=== PATIENT | male | born 1980 | race Two or more races ===

== ENCOUNTER → 2022-02-16 13:58 | Outpatient (BNVA) | payer OTHER, SELFPAY | PROVIDERS: PCP Internal Medicine; Visit Provider Nurse Practitioner Family | DX: G50.0 Trigeminal neuralgia (principal) | CPT/HCPCS: 99212 ==

== ENCOUNTER → 2022-04-29 09:20 | Outpatient (BNVA) | payer OTHER, SELFPAY | PROVIDERS: PCP Internal Medicine; Visit Provider Nurse Practitioner Family | DX: G50.0 Trigeminal neuralgia (principal); R51.9 Headache, unspecified | CPT/HCPCS: 99212 ==

== ENCOUNTER → 2022-07-02 14:46 | Outpatient (BNVA) | payer OTHER, SELFPAY | PROVIDERS: PCP Internal Medicine; Visit Provider Nurse Practitioner Family | DX: G50.0 Trigeminal neuralgia (principal) | CPT/HCPCS: 99212 ==

== ENCOUNTER → 2022-09-04 14:43 | Outpatient (BNVA) | payer OTHER, SELFPAY | PROVIDERS: PCP Internal Medicine; Visit Provider Nurse Practitioner Family | DX: G50.0 Trigeminal neuralgia (principal) | CPT/HCPCS: 99212 ==

== ENCOUNTER → 2022-12-03 14:15 | Outpatient (BNVA) | payer OTHER, SELFPAY | PROVIDERS: PCP Internal Medicine; Visit Provider Nurse Practitioner Family | DX: G50.0 Trigeminal neuralgia (principal) | CPT/HCPCS: 99212 ==

== ENCOUNTER → 2023-01-11 08:15 | Outpatient (BNVA) | payer OTHER, SELFPAY | PROVIDERS: PCP Internal Medicine; Visit Provider Nurse Practitioner Family | DX: G50.0 Trigeminal neuralgia (principal); R51.9 Headache, unspecified; K08.9 Disorder of teeth and supporting structures, unspecified; G89.29 Other chronic pain | CPT/HCPCS: 99202 ==

== ENCOUNTER → 2023-02-02 09:27 | Outpatient (BNVA) | payer OTHER, SELFPAY | PROVIDERS: PCP Internal Medicine; Visit Provider Nurse Practitioner Family | DX: Z13.89 Encounter for screening for other disorder (principal) ==

== ENCOUNTER 2023-02-26 08:04 | Outpatient (REF) | payer OTHER, SELFPAY ==
--- NOTE | ~2023-02-26 | MR_ITS ---
EXAMINATION: MR BRAIN WITHOUT AND WITH CONTRAST CLINICAL INFORMATION: Trigeminal neuralgia. COMPARISON: Neck CT 07/14/2021. TECHNIQUE: Multiplanar multisequence MRI of the brain was performed without and with contrast. A total of 7.5 mL Gadavist was intravenously administered. FINDINGS: There is no acute infarction, hemorrhage, mass, or extra-axial fluid collection. A few nonspecific foci of T2/FLAIR hyperintensity are seen within the cerebral white matter. The ventricles are normal in size without hydrocephalus. No abnormal intracranial enhancement is seen. The trigeminal nerves demonstrate a normal cisternal course without compression or deviation. There is no abnormal enhancement along the cisternal trigeminal nerves. Meckel's caves and the cavernous sinuses appear normal. Foramen rotundum and foramen ovale appear normal. The pterygopalatine fossa appears normal. There is no parotid or submandibular gland abnormality. The mandibular alveolus demonstrates normal signal. The entrance to the inferior alveolar nerve canal appears normal. There is no edema or abnormal enhancement within the sap mobility architect space. The major arterial flow voids are preserved at the skull base. The orbits are unremarkable. No significant paranasal sinus inflammation is seen. MR/MR head/brain wo/w con IMPRESSION: No acute intracranial abnormality. No mass or abnormal enhancement. No trigeminal nerve compression or abnormal enhancement.
== END 2023-02-26 08:05 | disposition home or self-care (01) ==
LOC: HO.MRI 08:04
PROVIDERS: Visit Provider Nurse Practitioner Family
DX: R51.9 Headache, unspecified (principal); G50.0 Trigeminal neuralgia; G89.29 Other chronic pain; K08.9 Disorder of teeth and supporting structures, unspecified
CPT/HCPCS: 70553; A9585

== ENCOUNTER → 2023-03-04 15:26 | Outpatient (BNVA) | payer OTHER, SELFPAY | PROVIDERS: PCP Internal Medicine; Visit Provider Nurse Practitioner Family ==

== ENCOUNTER → 2023-04-30 10:36 | Outpatient (BNVA) | payer OTHER, SELFPAY | PROVIDERS: PCP Internal Medicine; Visit Provider Nurse Practitioner Family ==

== ENCOUNTER 2023-07-23 08:29 | Outpatient (AMB) | payer OTHER, SELFPAY ==
--- NOTE | 2023-07-23 08:30 | A.OFFVIS_ITS ---
Intake Vital Signs 07/23/23 08:33 Height 5 ft 10 in Weight 169 lb 8 oz BMI 24.3 BP 134/83 Blood Pressure Location Lt brachial Position Sitting Pulse 75 Pulse Source Pulse Oximeter Pulse Oximetry (%) 99 Oxygen Delivery Method Room Air Intake Visit Reasons: Increasing Pain Intake Note: Pain today 03/08. Child Neurologist Required: No Accompanied by: Self / Same As Patient Allergies No Known Allergies Allergy (Verified 07/23/23 08:33) HPI HPI Comments History of Present Illness Details Patient presents today for follow up regarding left sided facial pain related to trigeminal neuralgia. He reports occasional similar symptoms on his right side of the face. Patient is most concerned with reoccurence and frequency of bilateral temples pain with tenderness. Reports significant swelling after head massage and around side of his head, with swelling around his temples worse on the left than right. He also reports occasional facial and jaw pain with chewing. Patient notes increase in headaches which are tension related in nature due to increase stress. He checks his blood pressure at home after work hours and notes increased readings in 140's. Patient denies specific follow up for elevated BP with his PCP and mostly sees his PCP for well visits. I have encouraged patient to follow up with his PCP regarding BP monitoring and management. Given his samaritan tenderness, we will proceed with Vascular Referral to further evaluate this and rule out temporal arteritis. Denies any fever, cough, shortness of breaths, chest pain, visual disturbances, gait imbalance, bladder or bowel incontinence or saddle anesthesia. PRIOR: Patient presents today via telehealth encounter for medication review. Patient reports he believes he developed allergic reaction to topical compound cream. Patient states he developed swelling, redness, and rash over left side of his face and near left eye and few rash over his trunk. Patient reports he might have applied too much of topical cream and this causes allergic reaction. He states that he has used topical compound cream before in small amounts before without any rash or other side effects. Patient also states that he has not had significant pain related to trifeminal neuralgia for the past 2 months since consistently taking baclofen prn and amitriptyline at bedtime. Denies any other recent cough, cold, infection, fever, visual changes or disturbances or other significant changes in medical history since last office visit. PRIOR: Patient is a pleasant 42 years old male who presents today for an initial evaluation of left sided facial pain. Patient was referred to our office by our neurology colleagues for treatment of left trigeminal neuralgia. Patient reports his left sided facial pain started over 1.5 years ago after a dental procedure, which involved extraction of 3 teeth. Patient notes that he chronically has dental problems and recently started antibiotics for right upper dental abscess for one month. He failed conservative measures, including gabapentin, Trileptal, carbamazepine, amitriptyline, topiramate, baclofen. He presents with localized tenderness in the projection of V1, V2, V3 distribution on the left side of the forehead, left face, part of left ear and left upper and lower teeth. Patient reports pressure from the left upper teeth to the left t emporal region and head. Reports mild to moderate pain with chewing, talking or upright position. Pain relieved in a recumbent position. Patient describes his pain as intermittent aching, stabbing, lancinating and numbness with occasional spasming. Episodes lasting 2-3 minutes and reports relief in between. Denies any fever, malaise, weight loss, vision changes, hearing loss, postural dizziness, m michele loss, burning or tingling pain, ear pain, or ipsilateral facial muscle contractions. [facility] Surgical History Hx of hernia repair Family History Father Stroke Hypercholesterolemia Mother Throat cancer Social History Household Members: Spouse and Children Alcohol intake: never Patient Tobacco Use Status: Never used Tobacco Current occupational status: employed Review of Systems Const All systems reviewed & are unremarkable except as noted in HPI and below ENT Reports Normal hearing present Neuro Reports Normal hearing present and Reports Sensory deficit (Neuro) Physical Exam Vital Signs: Last Vital Signs Pulse 75 07/23/23 08:33 BP 134/83 07/23/23 08:33 Pulse Ox 99 07/23/23 08:33 Oxygen Delivery Method Room Air 07/23/23 08:33 BMI result Body Mass Index 24.3 General: Appears afebrile. Alert and oriented. Mood and affect appropriate. Follows and participates in conversation appropriately. Respiratory effort is unlabored. Able to transition from sit to stand unassisted. Ambulates with bilaterally normal heel strike and toe off. Const Orientation/consciousness: patient oriented x3 HEENT Head: Yes normal to inspection, Yes No palpable skull fracture present, Yes normocephalic, Yes atraumatic, No occipital foramen tenderness, No scalp tenderness and Yes Temporal artery tenderness present (bilateral, left >right) Eyes General: appearance normal, both eyes and all related structures Visual Burkett: normal visual burkett by confrontation Pupils: Equal, round and reactive pupils present Neck Neck: Yes full ROM, Yes no lymphadenopathy, Yes supple, No anterior neck sw elling and Yes no JVD Neuro Other: Tenderness in the projection of V1, V2, V3 distribution on the left side of the forehead, left face, part of left ear and left upper and lower teeth. Reports mild pain with chewing. General: patient oriented x3, gait normal, moves all extremities, Normal light touch and pain sensation, no focal motor deficits, CN's II-XI intact bilaterally and deep tendon reflexes 2+ bilaterally Cranial nerves: Yes Facial sensation intact/muscles of mastication intact (decreased sensation left forehead and left face), Yes Equal, round and reactive pupils present, Yes Bilaterally intact EOM present, Yes Nystagmus not present, Yes Normal facial strength present, Yes Normal hearing present, Yes Ability to bilaterally rotate head present and Yes Ability to bilaterally elevate shoulders present Cognition (Neuro): normal cognition Gait exam (Neuro): Normal gait present Motor exam (neuro): no tremor noted Sensory Exam: Sensory deficit (Neuro) Results Reviewed Results Reviewed: MR BRAIN WITHOUT AND WITH CONTRAST 02/26/23 CLINICAL INFORMATION: Trigeminal neuralgia. COMPARISON: Neck CT 07/14/2021. FINDINGS: There is no acute infarction, hemorrhage, mass, or extra-axial fluid collection. A few nonspecific foci of T2/FLAIR hyperintensity are seen within the cerebral white matter. The ventricles are normal in size without hydrocephalus. No abnormal intracranial enhancement is seen. The trigeminal nerves demonstrate a normal cisternal course without compression or deviation. There is no abnormal enhancement along the cisternal trigeminal nerves. Meckel's caves and the cavernous sinuses appear normal. Foramen rotundum and foramen ovale appear normal. The pterygopalatine fossa appears normal. There is no parotid or submandibular gland abnormality. The mandibular alveolus demonstrates normal signal. The entrance to the inferior alveolar nerve canal appears normal. There is no edema or abnormal enhancement within the supervisor cleaning and annealing space. The major arterial flow voids are preserved at the skull base. The orbits are unremarkable. No significant paranasal sinus inflammation is seen. IMPRESSION: No acute intracranial abnormality. No mass or abnormal enhancement. No trigeminal nerve compression or abnormal enhancement. Assessment & Plan Assessment & Plan (1) Nondenominational tenderness: Code(s): R51.9 - Headache, unspecified (2) Trigeminal neuralgia of left side of face: Code(s): G50.0 - Trigeminal neuralgia (3) Headache: Code(s): R51.9 - Headache, unspecified (4) Chronic dental pain: Code(s): K08.9 - Disorder of teeth and supporting structures, unspecified; G89.29 - Other chronic pain Plan 1. Continue amitriptyline and magnesium for trigeminal neuralgia. 2. Medrol Jefe script sent for pain in the projection of temples. I will also refer patient to our Vascular Surgeon for further evaluation to rule out temporal arteritis. All questions were answered and patient agreed with the plan. Follow up as after Vascularl evaluation and sooner if needed. Orders: Referrals Vascular Surgery Referral R51.9 - Headache, unspecified Medications: New methylprednisolone (Medrol (Jefe)) PO PER PKG DIR 21 ea 0RF pain G50.0 - Trigeminal neuralgia, R51.9 - Headache, unspecified Refilled magnesium glycinate 200 mg (2 x 100 mg) PO DAILY 60 tabs 3RF pain 30 days G50.0 - Trigeminal neuralgia, G89.29 - Other chronic pain, K08.9 - Disorder of teeth and supporting structures, unspecified, R51.9 - Headache, unspecified Discontinued prednisone Discontinued Reason: Patient Completed Course 40 mg (2 x 20 mg) PO DAILY 5 days 10 tabs 1RF G50.0 - Trigeminal neuralgia, T78.40XA - Allergy, unspecified, initial encounter Coding Level of Care Code Est Pt Level 4 (51224) Diagnoses Nondenominational tenderness R51.9 Trigeminal neuralgia of left side of face G50.0 Headache R51.9 Chronic dental pain K08.9; G89.29
[2023-07-23 08:33] VITALS: BP 134/83; PULSE 75; O2SAT 99; BMI 24.3
== END 2023-07-23 08:52 | disposition home or self-care (01) ==
PROVIDERS: PCP Internal Medicine; Visit Provider Nurse Practitioner Family
DX: R51.9 Headache, unspecified (principal); G50.0 Trigeminal neuralgia; K08.9 Disorder of teeth and supporting structures, unspecified; G89.29 Other chronic pain
CPT/HCPCS: 99214

== ENCOUNTER → 2023-07-23 08:29 | Outpatient (BNVA) | payer OTHER, SELFPAY | PROVIDERS: PCP Internal Medicine; Visit Provider Nurse Practitioner Family | DX: R51.9 Headache, unspecified (principal); G50.0 Trigeminal neuralgia; K08.9 Disorder of teeth and supporting structures, unspecified; G89.29 Other chronic pain | CPT/HCPCS: 99212 ==

== ENCOUNTER 2023-07-27 14:48 | Outpatient (AMB) | payer OTHER, SELFPAY ==
[2023-07-27 14:51] VITALS: BMI 24.1
--- NOTE | 2023-07-27 14:51 | A.OFFVIS_ITS ---
Intake Vital Signs 07/27/23 14:51 Height 5 ft 10 in Weight 168 lb BMI 24.1 Intake Visit Reasons: LEARNING FACILITATOR/Pain Stanley ref for temporal Arteritis Intake Note: Naresh presents today as a new pt regarding temporal arteritis. Pt reports feeling pains on his temporal lobe that travel down his jaw and into his teeth. He mainly feels either numbness, sharpness, or tingling pains, mainly on his left side but now starting on his right as well. His provider form Pain Management started him on methlyprednisolone. He says that the new medication does not help and his pain still feels the same. Personalized Living Manager Required: No Accompanied by: Self / Same As Patient Allergies No Known Allergies Allergy (Verified 07/27/23 14:56) HPI LEARNING FACILITATOR/Pain Stanley ref for temporal Arteritis HPI Details Very pleasant 43-year-old gentleman presents for evaluation by pain management regarding temporal headaches. He has had these persistent temporal headaches that have been going on for quite some time now. He reports that it is left more so than right. She was assessed by pain management and there was concern of temporal arteritis. Was actually started on a regimen of steroids. Now presents for vascular evaluation. [facility] Surgical History Hx of hernia repair Family History Father Stroke Hypercholesterolemia Mother Throat cancer Social History Household Members: Spouse and Children Alcohol intake: never Patient Tobacco Use Status: Never used Tobacco Current occupational status: employed Review of Systems Const All systems reviewed & are unremarkable except as noted in HPI and below Reports no additional complaints ENT Reports Normal hearing present Card Denies chest pain, Denies chest pain at rest, Denies chest pain with activity and Denies pedal edema Resp Denies cough GI Denies abdominal pain Musc Denies abnormal gait, Denies muscle cramps and Denies radiating pain into limb Skin/Breast Denies skin ulcer and Denies wounds Neuro Reports Normal hearing present and Denies abnormal gait Psych Reports no additional complaints Physical Exam Vital Signs: BMI result Body Mass Index 24.1 Const General: cooperative, healthy appearing and comfortable Orientation/consciousness: oriented to person, oriented to place and oriented to time HEENT Head: Yes normal to inspection Neck Neck: Yes normal visual inspection Carotids: no bruits Chest Chest palpation & inspection: normal inspection of the chest Resp Effort & Inspection: normal respiratory effort and able to speak in complete sentences Auscultation: clear to auscultation bilaterally, no crackles, no rales, no rhonchi and no wheezes Cardio Rate: regular rate Rhythm: regular rhythm Heart sounds: S1 normal heart sound present and S2 normal heart sound present Bruits: no carotid bruits Peripheral pulses: Peripheral pulses 2+ throughout GI Inspection: Yes normal to inspection Skin Wounds: no wounds Hair: normal Neuro General: oriented to person, oriented to place and oriented to time Cranial nerves: Yes CN's II-XII intact bilaterally and Yes Normal hearing present Cognition (Neuro): normal cognition Motor exam (neuro): 5/5 motor strength present throughout Extrem Other: venous exam: No significant superficial varicosities or spider telangiectasias, minimal edema General: No clubbing, No cyanosis and No edema Psych Appearance: grossly normal Mental Status: mental status grossly normal Speech and movement: Normal speech and movement present Assessment & Plan Assessment & Plan (1) Giant cell arteritis: Code(s): M31.6 - Other giant cell arteritis Plan: In short patient will require left temporal artery biopsy. Risks benefits complications of the procedure were discussed in detail with the patient. Patient understood and consented. Will schedule for tomorrow. Thank you for allowing us to assist in his care. Coding Level of Care Code New Pt Level 4 (37486) Diagnoses Giant cell arteritis M31.6
== END 2023-07-27 16:22 | disposition home or self-care (01) ==
PROVIDERS: PCP Internal Medicine; Visit Provider Surgery Vascular Surgery
DX: M31.6 Other giant cell arteritis (principal)
CPT/HCPCS: 99204

== ENCOUNTER → 2023-07-27 14:48 | Outpatient (BNVA) | payer OTHER, SELFPAY | PROVIDERS: PCP Internal Medicine; Visit Provider Surgery Vascular Surgery | DX: M31.6 Other giant cell arteritis (principal) | CPT/HCPCS: 99202 ==

== ENCOUNTER 2023-07-28 08:58 | Day surgery (SDC) | payer OTHER, SELFPAY ==
[2023-07-28 09:08] VITALS: BMI 25.5
[2023-07-28 09:32] VITALS: BP 136/81; PULSE 81; RESP 16; TEMP 36.8; O2SAT 99
[2023-07-28] MEDS: Lactated Ringers 1,000 ML 50 ML IVCONT (10:50)
--- NOTE | 2023-07-28 10:58 | P.CONAN_ITS ---
HPI - Anesthesia Eval Consult details Narrative: 43yo male patient for Left temporal artery biopsy PMFSH Active Problems Active Problems: All Active Problems (Updated 07/28/23 @ 10:35 by Jesenia Bronson MD) Giant cell arteritis (Acute) [place] tenderness (Acute) Allergic reaction (Acute) Trigeminal neuralgia of right side of face (Acute) Chronic dental pain (Acute) Headache (Acute) Trigeminal neuralgia of left side of face (Acute) Family History Family History Father Stroke Hypercholesterolemia Mother Throat cancer Family history of problems with anesthesia: No Surgical History Surgical History Hx of hernia repair History of Problems with Anesthesia: No Social History Social History Household Members: Spouse and Children Alcohol intake: never Patient Tobacco Use Status: Never used Tobacco Use of substances other than those prescribed or required for medical reasons: No Are you DNR?: No Advance Directives: No Advance Directives Information Provided: Yes Current occupational status: employed Meds Allergies Allergy/AdvReac Type Severity Reaction Status Date / Time No Known Allergies Allergy Verified 07/28/23 09:13 Active Medications: Current Medications Lactated Ringer's (Lr) 1,000 mls @ 50 mls/hr IVCONT .Q20H KENDRA Exam Exam Date and Time: July 28, 2023 1058 Height,Weight and Vital Signs: Height 5 ft 10 in Weight 80.739 kg Last Vital Signs Temp 98.3 F 07/28/23 09:32 Pulse 81 07/28/23 09:32 Resp 16 07/28/23 09:32 BP 136/81 07/28/23 09:32 Pulse Ox 99 07/28/23 09:32 O2 Del Method Room Air 07/28/23 09:32 Airway Mallampati Class: II TM Dist: >3cm Neck ROM: Full Loose/Missing/Broken Teeth: Yes (Extractions 2 teeth top Right back- infected. Denies broken or loose teeth) Heart: RRR Lungs: CTAB Assessment and Plan Assessment Anesthesia Assessment: Anesthesia Plan Discussed and Chart Reviewed Final Anesthetic Review Family History of Problems with Anesthesia: No History of Problems with Anesthesia: No NPO: Yes ASA Class: II Final Preanesthetic Review: No Changes in Pt Med Stat, Meds/Allgs Chart Reviewed, Consent Obtained/Reviewed and Anes Risks/Benef Reviewed Patient Risk: Low Procedure Risk: Low Assessment/Block/Sedation in SS: Assess/Block/Sedation-SS Anesthetic Plan Anesthetic Plan: GA Disposition: Standard PACU
[2023-07-28 11:42] VITALS: BP 94/47; PULSE 76; RESP 16; TEMP 36.2; O2SAT 96
--- NOTE | 2023-07-28 11:44 | MHC.SHP ---
Pre-Procedural Eval Section A Date of Service: 07/28/23 The patient is an INPATIENT: No Changes since office visit: Yes Patient answered all questions The History & Physical has been completed within 30 days and I have reviewed it.: Yes Section B Chief Complaint: Other giant cell arteritis Allergies: Allergies Allergy/AdvReac Type Severity Reaction Status Date / Time No Known Allergies Allergy Verified 07/28/23 09:13 Plan I have reviewed the history and physical and performed a pertinent physical examination on my patient. No changes have occurred unless specified. Time Spent With Patient Time: Total time managing care of this patient today ____ minutes.
--- NOTE | 2023-07-28 11:44 | W.PM.OPN ---
Operative Note Operative Note Date of Service: 07/28/23 Narrative: Operative note by [facility] Preoperative diagnosis:1. Giant cell arteritis 2. Left temporal headache Postoperative diagnosis: Same Procedure: Left temporal artery biopsy Surgeon:Kevan Nugent M.D. Marine Gear Keeper: None Anesthesia: Local with sedation performed by Dr. Bronson from Anesthesia Specimens: 1 Drains: None Estimated blood loss: Minimal Indications: 43-year-old gentleman who originally presented to pain management with temporal headaches was worked out by the team. He was noted to have these persistent headaches and was started on a prednisone regimen. There was requested that a temporal artery biopsy be obtained. The patient has signed the informed consent after reviewing risks, complications, benefits, and alternatives previously discussed with the patient. The patient was given the opportunity to ask any additional questions or voice any concerns. All questions were answered to the patient's satisfaction. Procedure in detail: Patient was brought to the operating room prior to which a time-out was called for patient identification site verification. Left temporal region was prepped and draped in standard surgical fashion with Betadine. Cotton swab all swab was placed in the ear canal. Incision was carried out approximately 1 cm and anterior to the year. Moved brought the incision down to the skin fascial tissue down to the temporal artery. Incision was approximately 3 cm in length. We were able to easily identify the temporal artery. Proximal and distal edges were ligated with a 3-0 silk tie. Specimen was removed. Passed off the table for pathology. Once this was accomplished wound was irrigated thoroughly. Adequate hemostasis was achieved with electrocautery. Deep layer was reapproximated with 3-0 Polysorb skin was closed with a running 4-0 Monocryl. At the end Exofin was used as sterile dressing. At the end the case sponge instrument counts were correct. Patient tolerated the procedure well. Returned to recovery with stable vitals. This note is constructed using voice recognition software. While every effort has been made to ensure accuracy, overlock collar setter errors may have been included. Thank you for allowing me to participate in the care of your patient. Yours sincerely, Kevan Nugent MD, FACS, R.P.V.I.
[2023-07-28 11:57] VITALS: BP 111/61; PULSE 83; RESP 14; TEMP 36.2; O2SAT 97
[2023-07-28 12:12] VITALS: BP 119/86; PULSE 78; RESP 14; O2SAT 97
[2023-07-28 12:27] VITALS: BP 128/82; PULSE 75; RESP 14; TEMP 36.3; O2SAT 99
== END 2023-07-28 13:11 | disposition home or self-care (01) ==
PROVIDERS: Visit Provider Surgery Vascular Surgery
PROC: (CPT 37609; principal; 2023-07-28 10:40)
DX: M31.6 Other giant cell arteritis (principal); R51.9 Headache, unspecified; G50.0 Trigeminal neuralgia
CPT/HCPCS: 37609; 88305; J0690; J1100; J1885; J2250; J2405; J2795; J3010

== ENCOUNTER → 2023-07-28 08:58 | Outpatient (BNV) | payer OTHER, SELFPAY | PROVIDERS: Visit Provider Surgery Vascular Surgery | DX: M31.6 Other giant cell arteritis (principal); G44.221 Chronic tension-type headache, intractable; Z79.52 Long term (current) use of systemic steroids | CPT/HCPCS: 37609 ==

== ENCOUNTER 2023-09-09 09:46 | Outpatient (AMB) | payer OTHER, SELFPAY ==
--- NOTE | 2023-09-09 10:03 | A.OFFVIS_ITS ---
Intake Intake Visit Reasons: add-on temp art BX bump Intake Note: follow up temp art biopsy 07/28/23. Pt states that the incision site has formed a bump and even some bloody discharge. Painful to touch and sometimes with out touch. Pt states throughout the day it gets biiger and when he goes to bed and wakes up in the a.m. its smaller again Accompanied by: Self / Same As Patient Allergies No Known Allergies Allergy (Verified 09/09/23 10:08) HPI add-on temp art BX bump HPI Details 43-year-old gentleman presents [facility] w[facility]up regarding left temporal artery biopsy. This was done on 07/28/2023. Results of path was negative for any temporal arteritis. He developed a bump on that incision line over the last week or 2. It has been a source of pain and discomfort for him. He presents for follow-up. [facility] Surgical History (Updated 09/09/23 @ 10:09 by LINA Villasenor) History of temporal artery biopsy (07/28/23) Hx of hernia repair Family History Father Stroke Hypercholesterolemia Mother Throat cancer Social History Household Members: Spouse and Children Alcohol intake: never Patient Tobacco Use Status: Never used Tobacco Current occupational status: employed Review of Systems Const All systems reviewed & are unremarkable except as noted in HPI and below Reports no additional complaints ENT Reports Normal hearing present Card Denies chest pain, Denies chest pain at rest, Denies chest pain with activity and Denies pedal edema Resp Denies cough GI Denies abdominal pain Musc Denies abnormal gait, Denies muscle cramps and Denies radiating pain into limb Skin/Breast Denies skin ulcer and Denies wounds Neuro Reports Normal hearing present and Denies abnormal gait Psych Reports no additional complaints Physical Exam Const General: cooperative, healthy appearing and comfortable Orientation/consciousness: oriented to person, oriented to place and oriented to time HEENT Head: Yes normal to inspection Neck Neck: Yes normal visual inspection Carotids: no bruits Chest Chest palpation & inspection: normal inspection of the chest Resp Effort & Inspection: normal respiratory effort and able to speak in complete sentences Auscultation: clear to auscultation bilaterally, no crackles, no rales, no rhonchi and no wheezes Cardio Rate: regular rate Rhythm: regular rhythm Heart sounds: S1 normal heart sound present and S2 normal heart sound present Bruits: no carotid bruits Peripheral pulses: Peripheral pulses 2+ throughout GI Inspection: Yes normal to inspection Skin Other: Left temporal incision line approximately 1 cm raised area. Opened and serous fluid noted Wounds: no wounds Hair: normal Neuro General: oriented to person, oriented to place and oriented to time Cranial nerves: Yes CN's II-XII intact bilaterally and Yes Normal hearing present Cognition (Neuro): normal cognition Motor exam (neuro): 5/5 motor strength present throughout Extrem Other: venous exam: No significant superficial varicosities or spider telangiectasias, minimal edema General: No clubbing, No cyanosis and No edema Psych Appearance: grossly normal Mental Status: mental status grossly normal Speech and movement: Normal speech and movement present Assessment & Plan Assessment & Plan (1) [place] tenderness: Code(s): R51.9 - Headache, unspecified Plan: In short patient has developed a seroma from the biopsy site. This was open and drain. We did discussed local wound care including a protective dressing. He will follow up with us in approximately 2 weeks time. Thank you for allowing us to assist in his care Coding Level of Care Code Est Pt Level 3 (88967) Diagnoses [place] tenderness R51.9
== END 2023-09-09 10:38 | disposition home or self-care (01) ==
PROVIDERS: Visit Provider Surgery Vascular Surgery
DX: R51.9 Headache, unspecified (principal)
CPT/HCPCS: 99213

== ENCOUNTER → 2023-09-09 09:46 | Outpatient (BNVA) | payer OTHER, SELFPAY | PROVIDERS: Visit Provider Surgery Vascular Surgery | DX: L76.34 Postprocedural seroma of skin and subcutaneous tissue following other procedure (principal); R51.9 Headache, unspecified | CPT/HCPCS: 99212 ==

== ENCOUNTER 2023-11-02 09:17 | Outpatient (AMB) | payer OTHER, SELFPAY ==
[2023-11-02 09:22] VITALS: BP 148/80; PULSE 80; RESP 16; O2SAT 98; BMI 23.7
--- NOTE | 2023-11-02 09:22 | A.OFFVIS_ITS ---
Intake Vital Signs 11/02/23 09:22 Height 5 ft 10 in Weight 165 lb BMI 23.7 BP 148/80 H Blood Pressure Location Lt brachial Position Sitting Respiration 16 Pulse 80 Pulse Source Pulse Oximeter Pulse Oximetry (%) 98 Oxygen Delivery Method Room Air Intake Visit Reasons: Follow Up/confirmed Allergies No Known Allergies Allergy (Verified 11/02/23 09:21) HPI HPI Comments History of Present Illness Details Patient presents today for follow up for bilateral facial pain, worse on the left. He underwent left temporal artery biopsy on 07/28/[address] Nugent and this was negative for any temporal arteritis. His incision is well healing with slight tenderness. Patient reports chronic facial and dental pain which completely resolves upon supine position. Reports occasional tension headaches and elevated BP readings. He wanted to address his high blood pressure readings, reports 140-150/80's. Patient reports he has not seen his PCP in longtime. Patient reports he stopped drinking coffee, watches his salt intake and avoids processed foods. He will return [facility] in [place] to address this. Patient requests script for magnesium as he was not able to fill this last time. Denies any recent cough, cold, infection, fever or other significant changes in medical history since last office visit. PRIOR: Patient presents today for follow up regarding left sided facial pain related to trigeminal neuralgia. He reports occasional similar symptoms on his right side of the face. Patient is most concerned with reoccurrence and frequency of bilateral temples pain with tenderness. Reports significant swelling after head massage and around side of his head, with swelling around his temples worse on the left than right. He also reports occasional facial and jaw pain with chewing. Patient notes increase in headaches which are tension related in nature due to increase stress. He checks his blood pressure at home after work hours and notes increased readings in 140's. Patient denies specific follow up for elevated BP with his PCP and mostly sees his PCP for well visits. I have encouraged patient to follow up with his PCP regarding BP monitoring and management. Given his islam tenderness, we will proceed with Vascular Referral to further evaluate this and rule out temporal arteritis. Denies any fever, cough, shortness of breaths, chest pain, visual disturbances, gait imbalance, bladder or bowel incontinence or saddle anesthesia. PRIOR: Patient presents today via telehealth encounter for medication review. Patient reports he believes he developed allergic reaction to topical compound cream. Patient states he developed swelling, redness, and rash over left side of his face and near left eye and few rash over his trunk. Patient reports he might have applied too much of topical cream and this causes allergic reaction. He states that he has used topical compound cream before in small amounts before without any rash or other side effects. Patient also states that he has not had significant pain related to trigeminal neuralgia for the past 2 months since consistently taking baclofen prn and amitriptyline at bedtime. Denies any other recent cough, cold, infection, fever, visual changes or disturbances or other significant changes in medical history since last office visit. PRIOR: Patient is a pleasant 42 years old male who presents today for an initial evaluation of left sided facial pain. Patient was referred to our office by our neurology colleagues for treatment of left trigeminal neuralgia. Patient reports his left sided facial pain started over 1.5 years ago after a dental procedure, which involved extraction of 3 teeth. Patient notes that he chronically has dental problems and recently started antibiotics for right upper dental abscess for one month. He failed conservative measures, including gabapentin, Trileptal, carbamazepine, amitriptyline, topiramate, baclofen. He presents with localized tenderness in the projection of V1, V2, V3 distribution on the left side of the forehead, left face, part of left ear and left upper and lower teeth. Patient reports pressure from the left upper teeth to the left temporal region and head. Reports mild to moderate pain with chewing, talking or upright position. Pain relieved in a recumbent position. Patient describes his pain as intermittent aching, stabbing, lancinating and numbness with occasional spasming. Episodes lasting 2-3 minutes and reports relief in between. Denies any fever, malaise, weight loss, vision changes, hearing loss, postural dizziness, memory loss, burning or tingling pain, ear pain, or ipsilateral facial muscle contractions. [facility] Surgical History History of temporal artery biopsy (07/28/23) Hx of hernia repair Family History Father Stroke Hypercholesterolemia Mother Throat cancer Social History Household Members: Spouse and Children Alcohol intake: never Patient Tobacco Use Status: Never used Tobacco Current occupational status: employed Review of Systems Const All systems reviewed & are unremarkable except as noted in HPI and below ENT Reports Normal hearing present Neuro Reports Normal hearing present and Reports Sensory deficit (Neuro) Physical Exam Vital Signs: Last Vital Signs Pulse 80 11/02/23 09:22 Resp 16 11/02/23 09:22 BP 148/80 H 11/02/23 09:22 Pulse Ox 98 11/02/23 09:22 Oxygen Delivery Method Room Air 11/02/23 09:22 BMI result Body Mass Index 23.7 General: Appears afebrile. Alert and oriented. Mood and affect appropriate. Follows and participates in conversation appropriately. Respiratory effort is unlabored. Able to transition from sit to stand unassisted. Ambulates with bilaterally normal heel strike and toe off. Const Orientation/consciousness: patient oriented x3 HEENT Head: Yes normal to inspection, Yes No palpable skull fracture present, Yes normocephalic, Yes atraumatic, No occipital foramen tenderness, No scalp tenderness and Yes Temporal artery tenderness present (bilateral, left >right) Eyes General: appearance normal, both eyes and all related structures Visual Burkett: normal visual burkett by confrontation Alignment and Position: alignment normal Periorbital: periorbital findings normal Eyelids: Yes eyelids normal Conjunctivae: conjunctivae normal Pupils: Equal, round and reactive pupils present EOM: EOMs intact bilaterally Neck Neck: Yes full ROM, Yes no lymphadenopathy, Yes supple, No anterior neck swelling and Yes no JVD Neuro Other: Tenderness in the projection of bilateral face an upper and lower teeth, worse on the left side. Reports mild pain with chewing. General: patient oriented x3, gait normal, moves all extremities, Normal light touch and pain sensation, no focal motor deficits and CN's II-XI intact bilaterally Cranial nerves: Yes Facial sensation intact/muscles of mastication intact (decreased sensation left forehead and left face), Yes Equal, round and reactive pupils present, Yes Bilaterally intact EOM present, Yes Nystagmus not present, Yes Normal facial strength present, Yes Normal hearing present, Yes Ability to bilaterally rotate head present and Yes Ability to bilaterally elevate shoulders present Cognition (Neuro): normal cognition Gait exam (Neuro): Normal gait present Motor exam (neuro): 5/5 motor strength present throughout, no tremor noted and Motor abnormalities not present Sensory Exam: Sensory deficit (Neuro) Assessment & Plan Assessment & Plan (1) [place] tenderness: Code(s): R51.9 - Headache, unspecified (2) Trigeminal neuralgia of left side of face: Code(s): G50.0 - Trigeminal neuralgia (3) Chronic dental pain: Code(s): K08.9 - Disorder of teeth and supporting structures, unspecified; G89.29 - Other chronic pain (4) Essential hypertension: Code(s): I10 - Essential (primary) hypertension (5) Trigeminal neuralgia of right side of face: Code(s): G50.0 - Trigeminal neuralgia Plan 1. Continue amitriptyline prn and magnesium for trigeminal neuralgia. 2. Discussed conservative measures for HTN, including lifestyles changes and dietary dietary interventions such as reducing salt, avoid coffee, physical exercise, and stress management. Patient will re-establish care with his PCP provider in [facility]. 3. Medical excuse letter for Juror Duty provided at patient's request. All questions were answered and patient agreed with the plan. Follow up as needed. Medications: Refilled magnesium glycinate 200 mg (2 x 100 mg) PO DAILY 30 days 60 tabs 3RF pain G50.0 - Trigeminal neuralgia, G89.29 - Other chronic pain, K08.9 - Disorder of teeth and supporting structures, unspecified, R51.9 - Headache, unspecified Discontinued methylprednisolone (Medrol (Jefe)) Discontinued Reason: Patient Completed Course PO PER PKG DIR 21 ea 0RF pain G50.0 - Trigeminal neuralgia, R51.9 - Headache, unspecified Coding Level of Care Code Est Pt Level 4 (62259) Diagnoses [place] tenderness R51.9 Trigeminal neuralgia of left side of face G50.0 Chronic dental pain K08.9; G89.29 Essential hypertension I10 Trigeminal neuralgia of right side of face G50.0
== END 2023-11-02 09:49 | disposition home or self-care (01) ==
PROVIDERS: Visit Provider Nurse Practitioner Family
DX: G89.29 Other chronic pain (principal); R51.9 Headache, unspecified; G50.0 Trigeminal neuralgia; K08.9 Disorder of teeth and supporting structures, unspecified; I10 Essential (primary) hypertension
CPT/HCPCS: 99214

== ENCOUNTER → 2023-11-02 09:17 | Outpatient (BNVA) | payer OTHER, SELFPAY | PROVIDERS: Visit Provider Nurse Practitioner Family | DX: R51.9 Headache, unspecified (principal); G50.0 Trigeminal neuralgia; K08.9 Disorder of teeth and supporting structures, unspecified; I10 Essential (primary) hypertension; G89.29 Other chronic pain | CPT/HCPCS: 99212 ==